=== PATIENT | female | born 1965 | race Caucasian/White ===

== ENCOUNTER → 2023-08-25 08:56 | Outpatient (REF) | payer OTHER, SELFPAY | LOC: HWWDC 08:56 | PROVIDERS: ATTENDING PHYSICIAN Nurse Practitioner Adult Health | DX: Z12.31 Encounter for screening mammogram for malignant neoplasm of breast (principal) | CPT/HCPCS: 77063; 77067 ==

== ENCOUNTER 2023-11-23 00:20 | Emergency (ER) | payer OTHER, SELFPAY ==
[2023-11-23 00:22] VITALS: BP 180/110
--- NOTE | 2023-11-23 00:50 | ED.GENMED ---
History of Present Illness
General
Chief Complaint: Back Pain
Source: patient
Exam Limitations: none
Time Seen by Provider: 11/23/23 00:41
History of Present Illness
History of Present Illness:
This is a 58 year old female that comes in with c/o left sided lower rib pain. States that she has had COVID twice and is still coughing. States that know she is unable to take a deep breath due to the left sided lower rib pain. States that she
first had COVID in May and then got it again. Denies any fever, chills, chest pain, SOB, nausea, vomiting, diarrhea,
Past History
Past History
ED Past Medical History: Other (Long COVID); Negative Asthma, HTN, Hypercholesterolemia or NIDDM
ED Past Surgical History: (X 1), Tonsilectomy and Other (Laparoscopy)
Social History
Tobacco: Former smoker
Alcohol: Occasional
Personal:
Living: with family
Review of Systems
Review of Systems
All Other Systems: ROS reviewed and negative except as documented in HPI and ROS
Constitutional: Reports no symptoms; Denies fever or chills
EENT: Reports no symptoms
Respiratory: Reports trouble breathing (can't take a deep breath)
Cardiac: Reports no symptoms; Denies chest pain
ABD/GI: Reports abdominal pain (Just below the left lower ribs); Denies nausea, vomiting or diarrhea
: Reports no symptoms; Denies dysuria, frequency or urgency
Musculoskeletal: Reports other (left lower rib pain/back pain)
Skin: Reports no symptoms
Neurological: Reports no symptoms; Denies dizzy or headache
Psychiatric: Reports no symptoms
Phy Exam
General Physical Exam
General Presentation: well appearing and no apparent distress
General age: appears stated age
General Skin: warm and dry
General Habitus: normal
General Mental: alert
General Hydration: appears well hydrated
ENT Exam
ENT Exam: TM's normal, pharynx normal and neck supple
Eye Exam
Eye Exam: EOMI
Cardiovascular Exam
Cardiovascular Exam: regular rate/rhythm, no edema, no murmur and normal peripheral pulses
Pulmonary Exam
Pulmonary Exam: lungs clear, no respiratory distress, no rales, chest non tender, no crackles, no rhonchi, no wheezing and no cough
Gastrointestinal Exam
Gastrointestinal Exam: normal bowel sounds, soft, no organomegaly, no pulsatile mass, non distended, tender (Left upper quadrant with palpation) and other
Musculoskeletal Exam
Musculoskeletal Exam: full ROM, back pain (Tenderness to palpation over the left lower back with palpation lateral to the spine) and no edema
Skin Exam
Skin Exam: normal color, warm/dry, no rash and no petechia
Psychiatric Exam
Psychiatric Exam: normal mood/affect
Course
Orders/Labs/Results
Orders:
Orders
11/23/23 00:49
Ribs, Left 3 View W/PA Chest CR [CR Ribs-left 3 Vw W/pa Chest] Urgent
Comment:
Reason For Exam: Pain left lower ribs
11/23/23 00:50
Ketorolac [Toradol] 30 mg IV NOW STA
11/23/23 00:56
Electrocardiogram (*1) Urgent
Reason for Study: Chest Pain
EKG- Treatment ONCE
11/23/23 01:12
Complete Blood Count/With Diff Urgent
Comprehensive Metabolic Panel Urgent
D-Dimer Urgent
Troponin I Urgent
Abnormal Lab Results
11/23/23
01:12
Absolute Eos (auto) 1.0 H 10^3/uL
(0-0.7)
Eosinophils % 11.0 H %
(0-6)
Glucose 102 H mg/dl
(70-99)
Total Bilirubin 0.1 L mg/dl
(0.2-1.3)
AST 40 H U/L
(14-36)
11/23/23 01:12
11/23/23 01:12
Glucose nonfasting. Total tre slightly low. AST mildly elevated. Troponin <0.012, D-dimer <0.27
Vital Signs
Initial and Last Documented VS:
Initial Vital Signs
Temp Pulse Resp BP Pulse Ox
98.1 F 90 22 180/110 100
11/23/23 00:22 11/23/23 00:22 11/23/23 00:22 11/23/23 00:22 11/23/23 00:22
Last Documented Vital Signs
Temp Pulse Resp BP Pulse Ox
98.1 F 90 22 180/110 100
11/23/23 00:22 11/23/23 00:22 11/23/23 00:22 11/23/23 00:22 11/23/23 00:41
MDM/Problems Addressed
Differential Diagnosis Includes:
Rib fracture, Musculoskeletal pain
MDM/Problems Addressed:
This is a 58 year old female that comes in with c/o left lower back pain that is just below the ribs. States that she is unable to take a deep breath.
Will check labs. ECG, Rib series and D-dimer. If D-dimer positive will get CT scan.
Back into see patient. Explained shannon this blood work is normal and there is no obvious rib fracture noted. Encouraged patient to take Ibuprofen 600mg every 6 hours as needed for pain and then take deep breaths to open up the lower lung armenta. There
could be a fracture that is not seen but there is nothing to really do for this but take the deep breaths and medication for pain. Explained that this may also be more Musculoskeletal from the coughing that she had been doing. Patient to follow up
with the family doctor. Return with any concerns.
Chronic conditions affecting care:
NA
Acute Exacerbation and/or Progression of Chronic Illness:
NA
*Radiology
Radiology exam reviewed: preliminary read by ED provider (chest- Negative for acute disease of the chest or rib fractures. )
*Pulse Oximetry
Patient hypoxic: no
*EKG
Interpreted by ED Provider?: Yes
Heart Rate: 66
Rate: normal
Rhythm: sinus
[place]: normal axis
Interval: normal interval
QRS Pattern: normal QRS
Ischemia: T-wave inversion (aVR, V1, V2)
*Curator Of Education Interpretation
Rate: Curator Of Education- N/A
*Critical Care Note
Total Time (30-74mins, 75-104mins- exclusive of procedures): Not Applicable
ED Attending Note
-
Portions of this chart may have been created with voice recognition software.� Occasional wrong word or��sound alike� substitutions may have occurred due to the inherent limitations of voice recognition software.
Discharge Plan
Departure
Patient Disposition: Home (Routine Discharge)
Date of Disposition: 11/23/23
Time of Disposition: 02:16
Patient with high blood pressure during this ER visit?: Yes
Condition: Good
Covid-19: Not Applicable
Discharge Problem:
Musculoskeletal back pain
Instructions: BLOOD PRESSURE, Musculoskeletal Pain
Activity Restrictions/Additional Instructions:
As discussed, your blood work is normal along with your chest x-ray. There is no obvious fracture noted but this may just not be seen. Please take Ibuprofen 600mg every 6 hours for pain with food. You may also use Tylenol 1000mg every 6 hours and
alternate them so you have better pain control. So if you take Tylenol at 9am the Ibuprofen would be due at 12 noon and the Tylenol at 3pm and Ibuprofen at 6pm. This will help control the pain and decrease any inflammation. Follow up with the
family doctor for recheck. IF YOU HAVE ANY OTHER CONCERNS PLEASE RETURN TO THE EMERGENCY ROOM.
Interventions
Interventions:
*Risk Screen - Suicide Last Done: 11/23/23 00:22
*General Assessment Last Done: 11/23/23 00:41
*Neglect/Abuse Screening Last Done: 11/23/23 00:22
ED- Fall Risk Assessment Last Done: 11/23/23 00:41
*ED COVID-19 Vaccine History Last Done: 11/23/23 00:41
ED-Musculoskeletal Assessment Last Done: 11/23/23 00:41
ED- Pulmonary Assessment Last Done: 11/23/23 00:41
Discharge Date and Time
Print Language: NIGERIAN
[2023-11-23] MEDS: TORADOL 30 MG IV (01:13)
[2023-11-23 01:25] LABS: % Basophils 1.2 % (0-2); % Immature Granulocytes 0.2 % (0-0.5); % Lymphocytes 27.1 % (20.5-51.1); % Monocytes 4.9 % (1.7-9.3); % Neutrophils 55.6 % (42.2-75.2); Absolute Basophils 0.1 10^3/uL (0-0.2); Absolute Lymphocytes 2.3 10^3/uL (1.2-3.4); Absolute Monocytes 0.4 10^3/uL (0.1-0.6); Absolute Neutrophils 4.8 10^3/uL (1.4-6.5); Hematocrit 40.5 % (37.0-47.0); Hemoglobin 13.4 g/dL (12.0-16.0); Mean Corp Hgb Conc. 33.1 g/dL (33.0-37.0); Mean Corpuscular Hgb 27.4 pg (27.0-31.0); Mean Corpuscular Volume 82.8 fL (81.0-99.0); Mean Platelet Volume 10.1 fL (7.4-10.4); Nucleated Red Blood Cells % 0 %; Platelet Count 280 10^3/uL (130-400); Red Blood Cell Count 4.89 10^6/uL (4.20-5.40); Red Cell Dist. Width 12.4 % (11.5-14.5); White Blood Cell Count 8.6 10^3/uL (4.8-10.8)
[2023-11-23 01:44] LABS: ALT (SGPT) 21 U/L (0-35); AST (SGOT) 40 U/L (14-36); Albumin 4.8 g/dl (3.5-5.0); Alkaline Phosphatase 60 U/L (38-126); Blood Urea Nitrogen 15 mg/dl (7-17); Calcium 10.2 mg/dl (8.4-10.2); Carbon Dioxide 28 mmol/L (22-30); Chloride 103 mmol/L (98-107); Glucose 102 mg/dl (70-99); Potassium 3.6 mmol/L (3.5-5.1); Sodium 144 mmol/L (135-145); Total Bilirubin 0.1 mg/dl (0.2-1.3); Total Protein 7.2 g/dl (6.3-8.2); eGFR > 60.00
[2023-11-23 01:57] LABS: Troponin I < 0.012 ng/ml
[2023-11-23 01:58] LABS: D-Dimer < 0.27 ug/mlFEU (0.00-0.50)
[2023-11-23 02:15] VITALS: BP 152/75
== END 2023-11-23 02:35 | disposition home or self-care (01) ==
LOC: EMR 00:20
PROVIDERS: Clinical Nurse Specialist Family Health; EMERGENCY PHYSICIAN Student in an Organized Health Care Education/Training Program; FAMILY PHYSICIAN Nurse Practitioner Adult Health
DX: M54.9 Dorsalgia, unspecified (principal); Z87.891 Personal history of nicotine dependence
CPT/HCPCS: 99283; 96374; 71101; 80053; 84484; 85025; 85379; 93005

== ENCOUNTER → 2024-08-29 14:37 | Outpatient (REF) | payer OTHER, SELFPAY | LOC: HWWDC 14:37 | PROVIDERS: ATTENDING PHYSICIAN Nurse Practitioner Adult Health | DX: Z12.31 Encounter for screening mammogram for malignant neoplasm of breast (principal) | CPT/HCPCS: 77063; 77067 ==